=== PATIENT | female | born 1995 | race Caucasian/White ===

== ENCOUNTER 2022-09-18 19:57 | Emergency (ER) | payer OTHER, BC, SELFPAY ==
[2022-09-18 19:59] VITALS: BP 120/76; PULSE 92; RESP 16; TEMP 36.8; O2SAT 100
--- NOTE | 2022-09-18 21:34 | ED.ANIMALBIT ---
HPI - Animal Bite General Chief Complaint: Animal Bite Stated Complaint: dog bite Time Seen by Provider: 09/18/22 21:16 Source: patient Mode of arrival: ambulatory Limitations: no limitations History of Present Illness HPI narrative: This is a 27 year old female that presents to the ER for dog bite sustained just prior to arrival. 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 Reports the dog bit the back of her left leg. She is not up to date on tetanus. She is unsure of the dogs vaccination status, but reports she will be able to get ahold of the lead generator. Denies fevers. Review of Systems Review of Systems: CONSTITUTIONAL: Denies fever SKIN: Reports dog bite All systems reviewed & are unremarkable except as noted in HPI and below PMFSH Past Medical History Medical History (Updated 09/18/22 @ 21:47 by Kacie Alford PA-C) No active medical problems Social History Social History (Updated 09/18/22 @ 21:39 by Kacie Alford PA-C) Smoking status: Never smoker Exam Narrative: GENERAL: Well-appearing, well-nourished, and in no acute distress. HEAD: Normocephalic, atraumatic. EYES: EOMI. EXTREMITIES: Normal range of motion. No edema. Left posterior thigh with bruising, possible superficial abrasion SKIN: Warm, dry, no rash. NEURO: No focal deficits. Alert and oriented x3. PSYCH: Normal mood and affect Course Course Emergency Course: Patient agrees with plan of care Vital Signs Vital signs: Vital Signs Temperature 98.3 F 09/18/22 19:59 Pulse Rate 92 09/18/22 19:59 Respiratory Rate 16 09/18/22 19:59 Blood Pressure 120/76 09/18/22 19:59 Pulse Oximetry 100 09/18/22 19:59 Oxygen Delivery Room Air 09/18/22 19:59 Temperature 98.3 F 09/18/22 19:59 Pulse Rate 92 09/18/22 19:59 Respiratory Rate 16 09/18/22 19:59 Blood Pressure 120/76 09/18/22 19:59 Pulse Oximetry 100 09/18/22 19:59 Oxygen Delivery Room Air 09/18/22 19:59 MDM - Animal Bite MDM Narrative Medical decision making narrative: Patient presents to the ER dog bite just prior to arrival. 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 Reports the dog bit the back of her left leg. She is not up to date on tetanus. She is unsure of the dogs vaccination status, but reports she will be able to get ahold of the lead generator. She was updated on her tetanus vaccination. Will be started on oral antibiotics. It appears bite is mostly bruising but has maybe superficially broke the skin. Is to follow up with PCP. She was given warnings to return to the ER Differential Diagnosis Differential diagnosis: Likely dog bite and other (bruising) Critical Care Time Critical Care Time Critical Care Time: No Discharge Plan Discharge Clinical Impression: Dog bite Qualifiers: Encounter type: initial encounter Qualified Code(s): W54.0XXA - Bitten by dog, initial encounter Patient Disposition: Home, Self-Care Condition: Stable Instructions: Animal Bite (ED) Additional Instructions: Return to the emergency department if you experience fever, redness or swelling of your wound, abnormal drainage from your wound, or any other symptoms that are concerning to you. Apply antibiotic ointment daily. Do not soak the wound. Clean with mild soap and water daily. Take oral antibiotic as prescribed Follow-up with primary care doctor Prescriptions: New amoxicillin-pot clavulanate 875-125 mg tablet 1 tablet PO Q12H 5 Days Qty: 10 0RF Follow-up/Referrals: Jesus Higginbotham DO [Physician] - 1 Week PHYSICIAN,PALLIATIVE CARE NURSE PRACTITIONER [Primary Care Provider] -
[2022-09-18] MEDS: TETANUS,DIPHTHERIA,AC PERTUSSIS ADULT (0.5 ML) BOOSTRIX IM (22:11)
== END 2022-09-18 22:34 | disposition home or self-care (01) ==
PROVIDERS: Emergency Provider Physician Assistant
DX: S71.152A Open bite, left thigh, initial encounter (principal); Z23 Encounter for immunization; W54.0XXA Bitten by dog, initial encounter
CPT/HCPCS: 90471; 90715; 99283